=== PATIENT | female | born 1980 | race Caucasian/White ===

== ENCOUNTER 2023-01-26 16:00 | Outpatient (RCR) | payer OTHER, SELFPAY | END 2023-03-03 16:39 | disposition home or self-care (01) | PROVIDERS: PCP Family Medicine; Visit Provider Registered Nurse | DX: M54.2 Cervicalgia (principal); Z51.89 Encounter for other specified aftercare | CPT/HCPCS: 97110; 97140; 97161 ==

== ENCOUNTER 2023-01-31 14:38 | Outpatient (CLI) | payer OTHER, SELFPAY ==
--- NOTE | 2023-01-31 14:40 | CRLHL7_ITS ---
For Patients: As a result of the Century Cures Act, medical imaging exams and procedure reports are released immediately into your electronic medical record. You may view this report before your referring provider. If you have questions, please contact your health care provider. BILATERAL SCREENING MAMMOGRAM WITH COMPUTER-AIDED DETECTION TECHNIQUE: CC and MLO views were obtained. These mammographic images have been obtained using full-field digital technique. These mammographic images were interpreted with the benefit of computer-aided detection. COMPARISON FILM: Baseline. FINDINGS: The breasts are heterogeneously dense, which may obscure small masses IMPRESSION: There is no radiographic evidence for malignancy. ASSESSMENT: BI-RADS Category 1: Negative RECOMMENDATION: Routine screening mammogram in 1 year. A lay language report of this examination will be provided to the patient. Alfonso Black M.D. Diagnostic Radiologist [email or web address] CINDY/Dictated by: Alfonso Black MD @ 02/01/2023 8:20:00 AM (Electronically Signed)
== END 2023-01-31 14:39 | disposition home or self-care (01) ==
LOC: MAMMO 14:40
PROVIDERS: PCP Family Medicine; Visit Provider Registered Nurse
DX: Z12.31 Encounter for screening mammogram for malignant neoplasm of breast (principal); R92.2 Inconclusive mammogram
CPT/HCPCS: 77067

== ENCOUNTER 2024-04-17 15:47 | Outpatient (CLI) | payer OTHER, SELFPAY ==
--- NOTE | 2024-04-17 16:00 | CRLHL7_ITS ---
For Patients: As a result of the Century Cures Act, medical imaging exams and procedure reports are released immediately into your electronic medical record. You may view this report before your referring provider. If you have questions, please contact your health care provider. BILATERAL SCREENING MAMMOGRAM WITH COMPUTER-AIDED DETECTION AND TOMOSYNTHESIS TECHNIQUE: CC and MLO views were obtained. These mammographic images have been obtained using full-field digital technique. These mammographic images were interpreted with the benefit of computer-aided detection. Breast Tomosynthesis was used in this interpretation. COMPARISON FILM: 01/31/23. FINDINGS: The breasts are heterogeneously dense, which may obscure small masses IMPRESSION: There is no radiographic evidence for malignancy. ASSESSMENT: BI-RADS Category 1: Negative RECOMMENDATION: Routine screening mammogram in 1 year. A lay language report of this examination will be provided to the patient. Alfonso Black M.D. Diagnostic Radiologist [email or web address] FRANCI/dulce Transcribed: 2:52 p.seth cardona/Dictated by: Alfonso Black MD @ 04/18/2024 10:11:00 AM (Electronically Signed)
== END 2024-04-17 15:48 | disposition home or self-care (01) ==
LOC: MAMMO 15:47
PROVIDERS: PCP Family Medicine; Visit Provider Family Medicine
DX: Z12.31 Encounter for screening mammogram for malignant neoplasm of breast (principal); R92.333 Mammographic heterogeneous density, bilateral breasts
CPT/HCPCS: 77063; 77067

== ENCOUNTER 2024-06-06 15:34 | Outpatient (CLI) | payer OTHER, SELFPAY | END 2024-06-06 15:35 | disposition home or self-care (01) | PROVIDERS: PCP Family Medicine; Visit Provider Registered Nurse | DX: R53.83 Other fatigue (principal); E04.1 Nontoxic single thyroid nodule; N92.0 Excessive and frequent menstruation with regular cycle; N39.3 Stress incontinence (female) (male); Z13.1 Encounter for screening for diabetes mellitus; Z13.6 Encounter for screening for cardiovascular disorders | CPT/HCPCS: 80061; 82306; 84443; 87086 ==

== ENCOUNTER 2024-08-29 11:12 | Outpatient (CLI) | payer OTHER, SELFPAY ==
--- NOTE | 2024-08-29 11:15 | CRLHL7_ITS ---
For Patients: As a result of the Century Cures Act, medical imaging exams and procedure reports are released immediately into your electronic medical record. You may view this report before your referring provider. If you have questions, please contact your health care provider. INDICATION: Menorrhagia COMPARISON: None. TECHNIQUE: 2D narayanan-scale and color Doppler images were acquired of the pelvis using a transabdominal and transvaginal approach. Transvaginal imaging performed to better visualize the endometrial stripe and ovaries. FINDINGS: Sonographic images demonstrate a normal size and smooth outer contour of the uterus. Uterus measures 8.3 cm in length by 4.6 cm in AP diameter by 6.4 cm in transverse dimension. The myometrium has a normal uniform echotexture. Endometrium measures 8.1 millimeters. Hyperechoic structure associated with the endometrium measures 9 x 5 x 10 millimeters. The right ovary measures 4.6 x 1.5 x 2.5 cm in size and the left ovary measures 3.8 x 1.5 x 1.8 cm. The ovaries demonstrate normal arterial and venous blood flow on color Doppler analysis. There are no suspicious fluid collections within the cul-de-sac. IMPRESSION: Endometrial thickness 8.1 millimeters. 10 millimeter endometrial polyp suspected. Dictated by Alfonso Black MD @ 08/29/2024 2:02:32 PM (Electronically Signed)
== END 2024-08-29 11:13 | disposition home or self-care (01) ==
LOC: US 11:12
PROVIDERS: PCP Family Medicine; Visit Provider Registered Nurse
DX: N92.0 Excessive and frequent menstruation with regular cycle (principal); R93.89 Abnormal findings on diagnostic imaging of other specified body structures
CPT/HCPCS: 76830; 76856

== ENCOUNTER 2024-09-12 11:33 | Outpatient (CLI) | payer OTHER, SELFPAY | END 2024-09-12 11:34 | disposition home or self-care (01) | LOC: NFLDREF 09-16 06:26 | PROVIDERS: PCP Family Medicine; Referring Provider Family Medicine; Visit Provider Obstetrics & Gynecology | DX: R33.9 Retention of urine, unspecified (principal) | CPT/HCPCS: 87086 ==

== ENCOUNTER 2024-10-15 08:45 | Outpatient (RCR) | payer OTHER, SELFPAY | END 2025-01-16 08:15 | disposition home or self-care (01) | PROVIDERS: PCP Family Medicine; Visit Provider Registered Nurse | DX: N39.46 Mixed incontinence (principal); R10.20 Pelvic and perineal pain unspecified side; R27.8 Other lack of coordination; Z51.89 Encounter for other specified aftercare | CPT/HCPCS: 97110; 97112; 97140; 97161; 97535 ==

== ENCOUNTER 2024-12-04 06:02 | Day surgery (SDC) | payer OTHER, SELFPAY ==
[2024-12-04] VITALS (8 sets, daily range): BP systolic 71–99; BP diastolic 41–65; PULSE 71–89; RESP 14–16; TEMP 36.1–36.6; O2SAT 95–99; BMI 23.1
[2024-12-04] MEDS: LACTATED RINGERS 1000 ML 1,000 ML 100 ML IV (06:10)
--- NOTE | 2024-12-04 06:30 | SUR.PREOP ---
attempted IV in right hand, patient pulled away causing the IV to be removed. patient became pale, diaphoretic, lightheaded. patient was laid flat and offered cool wash cloths. patient states she's never reacted like this but is starting to feel better.
[2024-12-04] MEDS: SODIUM CHLORIDE 0.9 % (FLUSH) 10 ML SYRINGE IVF (06:39)
[2024-12-04 06:55] LABS: Hemoglobin* 13.0 gm/dL (12.0-16.0)
[2024-12-04 07:10] LABS: Creatinine* 0.6 mg/dL (0.5-1.5); Est. Creatinine Clearance* 100.01; Estimated Glomerular Filt Rate 114 ml/min
[2024-12-04 07:24] LABS: Ur HCG Qualitative* Negative (Negative)
--- NOTE | 2024-12-04 07:25 | W.PM.H&PU ---
History & Physical Update History & Physical Update H&P Reviewed and patient assessed: No changes noted
[2024-12-04] MEDS: LIDOCAINE 1%-EPI 1:100,000 20 ML INFILTRATI (07:51)
--- NOTE | 2024-12-04 08:12 | P.GYNPRC_ITS ---
Procedure Note Time Seen by Provider: 07:30 Date of procedure: 12/04/24 Will [facility] bill your pro fee for this procedure?: Yes Procedure Description: Preoperative diagnosis: 44 year-old here with abnormal uterine bleeding - polyps . Postoperative diagnosis: Same Procedure (s): Hysteroscopy, dilation and curettage, polypectomy Anesthesia: Conscious sedation with paracervical block. Surgeon:Mary Beth Gamboa MD Estimated blood loss: <5 mL Specimen: Endometrial curettings/polyp to pathology. Urine output: 20 cc IVF: 900 cc Findings: Exam under anesthesia: Cervix palpates normal. Uterus: anteverted position, 6 week size, mobile, without nodularity/masses palpable. Adnexa were without fullness or nodularity. On hysteroscopy: Polyp noted on right uterine side wall. Uterine fundus appears arcuate. Normal bilateral tubal ostia. Endometrium appeared uniformed. Procedure: Danya was taken to the operating where conscious sedation was found to be adequate. She was placed in the dorsal lithotomy position. An exam under anesthesia was performed with findings stated above. She was then prepped and draped in normal sterile manner. Straight catheter used to drain bladder. A bivalve metal speculum was placed in the vaginal canal. The cervix and vaginal canal appear normal. A paracervical block was placed using 1% lidocaine with epinephrine: 5 mL injected at the 4 and 8 o'clock positions on the cervix. The anterior lip of the cervix was then grasped with a long Allis. The cervix was dilated to Hegar 6. The uterus sounded to 8 cm. The hysteroscope advanced into the uterus and a diagnostic hysteroscopy was performed with findings stated above. Normal saline was used as the insufflation medium. Soft tissue shaver was used to perform polypectomy and global curetting. The uterus and documented a normal appearing uterine cavity at the end of the procedure. Fluid deficit at the end of the procedure 150 mL. Total fluid: 900 mL The hysteroscope and Allis clamp were removed from the uterus and cervix. Excellent hemostasis noted. Nothing was used for hemostasis. The patient tolerated the procedure well. Sponge, lap and instruments counts were correct at the end of the procedure. The patient was awakened from anesthesia and taken to the recovery area in stable condition. Surgical debrief performed and specimen reviewed at the end of the procedure.
--- NOTE | 2024-12-04 08:24 | P.ANES_ITS ---
Anesthesia Charges Start Date/Time Anesthesia Start Date: 12/04/24 Anesthesia Start Time: 07:28 Stop Date/Time Anesthesia Stop Date: 12/04/24 Anesthesia Stop Time: 08:22 Coding CPT Codes CPT Codes: ANESTH HYSTEROSCOPE/GRAPH - 63716 ([id number]) P2 - PATIENT W/MILD SYST DISEASE, QK - CLOTH SHRINKING TESTER 2-4 CNCRNT ANES PROC, QX - CAFETERIA ATTENDANT SVC W/ MD MED DIRECTION
--- NOTE | 2024-12-04 08:24 | W.ANESCHARGE ---
Anesthesia Charges Start Date/Time Anesthesia Start Date: 12/04/24 Anesthesia Start Time: 07:28 Stop Date/Time Anesthesia Stop Date: 12/04/24 Anesthesia Stop Time: 08:22 Coding CPT Codes CPT Codes: ANESTH HYSTEROSCOPE/GRAPH - 55493 ([id number]) P2 - PATIENT W/MILD SYST DISEASE, QK - PERSONALIZED LIVING MANAGER NURSE 2-4 CNCRNT ANES PROC, QX - CAFE SITE ATTENDANT SVC W/ MD MED DIRECTION
--- NOTE | 2024-12-04 08:46 | P.ANES_ITS ---
Anesthesia Charges Start Date/Time Anesthesia Start Date: 12/04/24 Anesthesia Start Time: 07:28 Stop Date/Time Anesthesia Stop Date: 12/04/24 Anesthesia Stop Time: 08:22 Coding CPT Codes CPT Codes: ANESTH HYSTEROSCOPE/GRAPH - 73777 ([id number]) P2 - PATIENT W/MILD SYST DISEASE, QK - IMPROVEMENT INTERN 2-4 CNCRNT ANES PROC, QX - FIRE CONTROL TECHNICIAN G SVC W/ MD MED DIRECTION
--- NOTE | 2024-12-04 08:46 | W.ANESCHARGE ---
Anesthesia Charges Start Date/Time Anesthesia Start Date: 12/04/24 Anesthesia Start Time: 07:28 Stop Date/Time Anesthesia Stop Date: 12/04/24 Anesthesia Stop Time: 08:22 Coding CPT Codes CPT Codes: ANESTH HYSTEROSCOPE/GRAPH - 81613 ([id number]) P2 - PATIENT W/MILD SYST DISEASE, QK - TOBACCO SPRAYER 2-4 CNCRNT ANES PROC, QX - DIRECTOR OF PREMIUM SEAT SALES SVC W/ MD MED DIRECTION
== END 2024-12-04 09:45 | disposition home or self-care (01) ==
PROVIDERS: PCP Family Medicine; Visit Provider Obstetrics & Gynecology
PROC: 0UDB8ZZ Extraction of Endometrium, Via Natural or Artificial Opening Endoscopic (ICD-10-PCS; CPT 58558; principal; 2024-12-04 07:15)
DX: N93.8 Other specified abnormal uterine and vaginal bleeding (principal); N84.0 Polyp of corpus uteri
CPT/HCPCS: 58558; 00952; 36415; 81025; 82565; 85018; 86850; 86900; 86901; 88305; C1782; J1100; J1885; J2250; J2371; J2405; J2704; J3010; J7120